=== PATIENT | female | born 1940 | race Caucasian/White ===

== ENCOUNTER 2019-01-17 21:17 | Observation (INO) | payer MEDICARE ==
[~2019-01-17] VITALS: Ht 162.6 cm; Wt 70.2 kg
[~2019-01-17 21:17] MED LIST: ANAS1 PO; AZIT250 PO; CEPH500 PO; HYDMOR2 PO; IBUP200; Lovastatin10 MG PO; MECL12.5 PO; METO50ER PO; ONDA4 PO; OXYACE5T PO; PROSTATIN; RXHYDMOR2 PO; WARF4 PO; WARF5 PO; ZESTORETIC 20-121 EA PO; [UNRECOGNIZED DRUG - REMARK]
[2019-01-17 22:30] LABS: BASOPHILS ABSOLUTE AUTO 0.02 K/mm3 (0.00-0.23); BASOPHILS PERCENT AUTO 0 % (0-2); EOSINOPHILS ABSOLUTE AUTO 0.34 K/mm3 (0.00-0.68); EOSINOPHILS PERCENT AUTO 6 % (0-6); Hematocrit 44.8 % (33.0-51.0); Hemoglobin 14.8 g/dL (11.5-16.0); IMMATURE GRAN ABSOLUTE AUTO 0.01 K/mm3 (0.00-0.10); IMMATURE GRAN PERCENT AUTO 0 % (0-1); LYMPHOCYTES ABSOLUTE AUTO 1.15 K/mm3 (0.84-5.20); LYMPHOCYTES PERCENT AUTO 20 % (21-46); MONOCYTES ABSOLUTE AUTO 0.57 K/mm3 (0.16-1.47); MONOCYTES PERCENT AUTO 10 % (4-13); Mean Corpuscular Volume 97 fL (80-100); Mean Platelet Volume 9.4 fL (9.1-12.4); NEUTROPHILS ABSOLUTE AUTO 3.81 K/mm3 (1.96-9.15); NEUTROPHILS PERCENT AUTO 65 % (41-73); Platelet Count 248 K/mm3 (150-400); RDW Coefficient Variation 13.3 % (11.7-14.2); RDW Standard Deviation 48.2 fL (35.1-46.3); Red Blood Cell Count 4.62 M/mm3 (3.80-5.20)
[2019-01-17 22:49] LABS: Anion Gap 9 mmol/L (6-16); Blood Urea Nitrogen 19 mg/dL (8-24); Bun/Creatinine Ratio 22.2 (12.0-20.0); CO2, Blood 27 mmol/L (21-32); Calcium, Blood 9.5 mg/dL (8.5-10.1); Chloride, Blood 104 mmol/L (98-108); Creatinine, Blood 0.86 mg/dL (0.40-1.00); Glomerular Filtration Rate >60 (60-); Glucose, Blood 100 mg/dL (70-99); Potassium, Blood 3.3 mmol/L (3.5-5.5); Sodium, Blood 140 mmol/L (136-145); Troponin I <0.015 ng/mL (0.000-0.040)
[2019-01-17] MEDS ORDERED: LOSARTAN-HCTZ1 EAC1 PO (22:53)
[2019-01-17] MEDS ORDERED: METO25ER PO (22:53)
[2019-01-17] MEDS ORDERED: Vitamin B Comple1 EA PO (22:54)
[2019-01-17] MEDS ORDERED: MELO7.5 PO (22:54)
[2019-01-17] MEDS ORDERED: THERA-D2000 UNIT PO (22:54)
[2019-01-17 23:15] LABS: Alanine Aminotransfer (ALT/SGP 15 U/L (12-78); Albumin, Blood 3.8 g/dL (3.4-5.0); Albumin/Globulin Ratio 1.1 (0.8-1.8); Alk Phos 67 U/L (50-136); Anion Gap 9 mmol/L (6-16); Aspartate Aminotrans (AST/SGOT 9 U/L (12-37); Bilirubin, Total 0.3 mg/dL (0.1-1.0); Blood Urea Nitrogen 20 mg/dL (8-24); Bun/Creatinine Ratio 22.5 (12.0-20.0); CO2, Blood 27 mmol/L (21-32); Calcium, Blood 9.5 mg/dL (8.5-10.1); Chloride, Blood 105 mmol/L (98-108); Creatinine, Blood 0.89 mg/dL (0.40-1.00); Globulin, Blood 3.4 g/dL (2.2-4.0); Glomerular Filtration Rate >60 (60-); Glucose, Blood 101 mg/dL (70-99); Magnesium, Blood 2.1 mg/dL (1.6-2.4); Potassium, Blood 3.3 mmol/L (3.5-5.5); Sodium, Blood 141 mmol/L (136-145); Total Protein, Blood 7.2 g/dL (6.4-8.2)
[2019-01-18] MEDS ORDERED: METOPROLOL SUCC25 MG PO (02:10)
--- NOTE | 2019-01-18 04:13 | NUR ---
Patient arrived from the ER @0230, with S/O. currently chest pain free. when she does have pain it radiates from the LT anterior axilary toward the sternum. Will follow up with MD after serial troponins. Nursing supervisor research shop notified of ECHO in am. @[id number]. patient stated that she was having this pain again. Call to veterinary technician, patient continues to be in SR with infrequent PAC's. each of these episodes lasts for approximately 5-60 seconds, per patient.
[2019-01-18 06:39] LABS: Anion Gap 6 mmol/L (6-16); Blood Urea Nitrogen 19 mg/dL (8-24); Bun/Creatinine Ratio 24.1 (12.0-20.0); CO2, Blood 29 mmol/L (21-32); Calcium, Blood 9.2 mg/dL (8.5-10.1); Chloride, Blood 106 mmol/L (98-108); Creatinine, Blood 0.79 mg/dL (0.40-1.00); Glomerular Filtration Rate >60 (60-); Glucose, Blood 98 mg/dL (70-99); Sodium, Blood 141 mmol/L (136-145)
--- NOTE | 2019-01-18 11:29 | NUR ---
Echocardiogram performed.
--- NOTE | 2019-01-18 16:52 | NUR ---
PT REPORTED CHEST PAIN RATING 6 ON 0-10 SCALE RADIATING FROM MIDAXILARY LINE TO THE STERNUM, MID CHEST LEVEL. PAIN LASTED < 1 MINUTE. COREY IN TELEMETRY CALLED AND REPORTED NO ABNORMAL CARDIAC ACTIVITY. VS TAKEN, JUST AFTER PAIN ENDED, TEMP 98.9, PULSE 72, RESP 12, BP 141/85, O2 95 ON ROOM AIR. PT STATES PAIN RELIEF SPONTANEOUSLY WITHOUT INTERVENTION.
--- NOTE | 2019-01-18 18:11 | NUR ---
PT ALERT AND ORIENTED THROUGHOUT THIS SHIFT. PT SPOUSE AND DAUGHTER IN THE ROOM FOR MOST OF THIS SHIFT. PT HAD 1 INSTANCE OF CHEST PAIN THIS AFTERNOON. PAIN LASTED < 1 MINUTE WITH NO ABNORMAL VS'S AFTER AND NO CHANGES IN TELEMETRY. PT INDEPENDENT IN THE ROOM. PT CURRENTLY UP IN BED EATING DINNER.
[2019-01-19 04:56] LABS: BASOPHILS ABSOLUTE AUTO 0.03 K/mm3 (0.00-0.23); BASOPHILS PERCENT AUTO 1 % (0-2); EOSINOPHILS ABSOLUTE AUTO 0.24 K/mm3 (0.00-0.68); EOSINOPHILS PERCENT AUTO 5 % (0-6); Hematocrit 45.6 % (33.0-51.0); Hemoglobin 14.9 g/dL (11.5-16.0); IMMATURE GRAN ABSOLUTE AUTO 0.01 K/mm3 (0.00-0.10); IMMATURE GRAN PERCENT AUTO 0 % (0-1); LYMPHOCYTES ABSOLUTE AUTO 1.07 K/mm3 (0.84-5.20); LYMPHOCYTES PERCENT AUTO 22 % (21-46); MONOCYTES PERCENT AUTO 10 % (4-13); Mean Corpuscular HGB 31.4 pg (26.0-34.0); Mean Corpuscular HGB Conc 32.7 g/dL (31.5-36.5); Mean Corpuscular Volume 96 fL (80-100); NEUTROPHILS ABSOLUTE AUTO 2.94 K/mm3 (1.96-9.15); NEUTROPHILS PERCENT AUTO 62 % (41-73); Platelet Count 255 K/mm3 (150-400); RDW Coefficient Variation 13.5 % (11.7-14.2); RDW Standard Deviation 48.2 fL (35.1-46.3); Red Blood Cell Count 4.75 M/mm3 (3.80-5.20); White Blood Cell Count 4.79 K/mm3 (4.00-11.30)
--- NOTE | 2019-01-19 05:22 | NUR ---
SHIFT SUMMARY NO ACUTE EVENTS OVERNIGHT. AAOX4. INDEPENDENT IN ROOM. NO COMPLAINTS OF PAIN THROUGHOUT NOC SHIFT. WILL CONTINUE TO MONITOR.
[2019-01-19 05:24] LABS: Alanine Aminotransfer (ALT/SGP 14 U/L (12-78); Albumin, Blood 3.5 g/dL (3.4-5.0); Albumin/Globulin Ratio 1.1 (0.8-1.8); Alk Phos 64 U/L (50-136); Anion Gap 7 mmol/L (6-16); Aspartate Aminotrans (AST/SGOT 18 U/L (12-37); Bilirubin, Total 0.5 mg/dL (0.1-1.0); Blood Urea Nitrogen 23 mg/dL (8-24); Bun/Creatinine Ratio 23.3 (12.0-20.0); CO2, Blood 30 mmol/L (21-32); Calcium, Blood 9.4 mg/dL (8.5-10.1); Chloride, Blood 102 mmol/L (98-108); Creatinine, Blood 0.99 mg/dL (0.40-1.00); Globulin, Blood 3.3 g/dL (2.2-4.0); Glomerular Filtration Rate 58 (60-); Glucose, Blood 98 mg/dL (70-99); Potassium, Blood 3.9 mmol/L (3.5-5.5); Sodium, Blood 139 mmol/L (136-145); Total Protein, Blood 6.8 g/dL (6.4-8.2); Troponin I <0.015 ng/mL (0.000-0.040)
[2019-01-19] MEDS ORDERED: ANAS1 PO (11:00)
[2019-01-19] MEDS ORDERED: ROSU5 PO (11:00)
--- NOTE | 2019-01-19 11:29 | NUR ---
DISCHARGE DISCHARGE MEDICATIONS AND INSTRUCTIONS EXPLAINED TO PATIENT AND PATIENT'S . THEY STATED UNDERSTANDING. [facility] [employer] WILL CALL PATIENT AT HOME TO SCHEDULE FOLLOW UP WITH PCP. OUTPATIENT SCHEDULING OR [facility] WILL CALL PATIENT AT HOME TO SCHEDULE OUTPATIENT STRESS TEST. ORDER FAXED TO [facility]. IV REMOVED WITHOUT DIFFICULTY. BELONGINGS WITH PATIENT. PATIENT AMBULATED TO PRIVATE VEHICLE.
== END 2019-01-19 11:19 | disposition home or self-care (01) ==
LOC: ER 21:17 → MEDS 21:18 → ENPENDDIS 01-19 10:03 → MEDS 01-19 11:19
PROVIDERS: Emergency Medicine; Internal Medicine Gastroenterology; Nurse Practitioner Acute Care; Physician Assistant; ADMIT Internal Medicine
DX: R07.89 Other chest pain (principal); I48.92 Unspecified atrial flutter; E87.6 Hypokalemia; I70.0 Atherosclerosis of aorta; I10 Essential (primary) hypertension; M16.0 Bilateral primary osteoarthritis of hip; M47.9 Spondylosis, unspecified; E55.9 Vitamin D deficiency, unspecified; Z79.1 Long term (current) use of non-steroidal anti-inflammatories (NSAID); Z79.899 Other long term (current) drug therapy; Z90.10 Acquired absence of unspecified breast and nipple; Z86.711 Personal history of pulmonary embolism; Z90.49 Acquired absence of other specified parts of digestive tract
CPT/HCPCS: 36415; 71046; 71260; 80048; 80053; 83735; 83880; 84443; 84484; 85025; 93005; 93010; 93306; 96372; 99285-25; G0378; J1650; Q9967